=== PATIENT | female | born 1970 | race Hispanic/Latino ===

== ENCOUNTER 2025-06-02 08:40 | Observation (INO) | payer OTHER ==
[2025-05-30 10:38] VITALS: BP 140/90; PULSE 80; RESP 18; TEMP 97.8
[2025-05-30 10:56] LABS: INR 0.98 (0.85-1.15)
--- NOTE | 2025-05-30 11:14 | NUR ---
PREOP MARIE RT INSTRUCTED PT ON INCENTIVE SPIROMETRY
[~2025-06-02] VITALS: Ht 160 cm; Wt 98.0 kg
[2025-06-02] VITALS (25 sets, daily range): BP systolic 126–167; BP diastolic 74–94; PULSE 45–95; RESP 14–22; TEMP 97.2–98.5; O2SAT 94–98
[~2025-06-02 08:40] MED LIST: CELE-125 PO; FLUT1BLS IH; LOSA1TAB37 PO; TYLENOL ARTHRITIS PO
[2025-06-02] MEDS ORDERED: LIDOCAINE PF 100MG/5ML (2%) SYRINGE 5ML ONE (10:51)
[2025-06-02] MEDS ORDERED: SUCCINYLCHOLINE CHLORIDE 20 MG/ML 10 ML VIAL ONE (10:52)
[2025-06-02] MEDS ORDERED: GLYCOPYRROLATE 0.2 MG/ML 5 ML VIAL ONE (10:52)
[2025-06-02] MEDS ORDERED: NEOSTIGMINE METHYLSULFATE 1MG/ML IV ONE (10:52)
[2025-06-02] MEDS ORDERED: MIDAZOLAM HCL 1 MG/ML 2ML VIAL ONE (10:53)
[2025-06-02] MEDS: TRANEXAMIC ACID 1000MG/10ML ONE (11:10)
[2025-06-02] MEDS ORDERED: PoTASSium chl 10% ELIXIR 20MEQ 20 MEQ/15 ML UDCUP PO PRN (13:30)
[2025-06-02] MEDS ORDERED: CYCLOBENZAPRINE HCL 10 MG TABLET PO PRN (13:30)
[2025-06-02] MEDS ORDERED: FERROUS FUMARATE 324 MG TABLET PO PRN (13:30)
[2025-06-02] MEDS ORDERED: CALCIUM CARB 500MG PO PRN (13:30)
--- NOTE | 2025-06-02 13:51 | OP ---
Operative Note: DATE OF PROCEDURE: 06/02/25 PREOPERATIVE DIAGNOSIS: Left knee osteoarthritis. POSTOPERATIVE DIAGNOSIS: Left knee osteoarthritis. PROCEDURE PERFORMED: Left knee total knee arthroplasty. SURGEON: Hillary Mcdowell MD DRIVER RECRUITER: Nelda Bustillos and Annabelle Ozuna. ANESTHESIA: General with adductor canal block. ANESTHESIA: ORVILLE Fonseca ESTIMATED BLOOD LOSS: 50cc. COMPLICATIONS: None. DRAINS: None. SPECIMENS REMOVED: resected bone. Not sent to pathology. IMPLANTS: [employer] BCS size 4 Oxinium femur, size 3 tibial base plate, 32 mm patella, 9 mm polyethylene STATEMENT OF MEDICAL NECESSITY: The patient is a 55-year-old female who suffers from left knee osteoarthritis failing conservative management. After discussion of the risks, benefits, and alternatives with the patient, they voluntarily agreed to undergo the aforementioned procedure. DESCRIPTION OF PROCEDURE: Patient was properly identified in the preoperative holding area. Surgical site marking was verified and surgery consent reviewed. The patient was then taken to the operating room and placed in supine position on the OR table. After induction of general anesthesia, preoperative antibiotics were given, all bony prominences were well-padded, and a well padded tourniquet was applied but not inflated at this time. The left lower extremity was then prepped and draped in usual sterile fashion. Surgical time out was done verifying correct surgery, side, site, and location to be performed. We then began the procedure by exsanguinating the limb using an Esmarch and inflating the tourniquet to 350 mmHg. At this point, we made an anterior midline incision using a 10 blade, coming down sharply the level of the fascia. Skin flaps were elevated medially and laterally. We then obtained a clean 10 blade and performed a standard medial parapatellar arthrotomy. We excised the infrapatellar fat pad. We performed our soft tissue releases off of the tibia. We transected the ACL and removed the anterior portion of the medial & lateral meniscus. We then brought the knee into hyperflexion with the patella everted. We used our entry reamer to enter the femoral canal. We then placed our intramedullary cutting guide for our distal femoral cutting block. We then performed our distal femoral osteotomy ensuring appropriate rotation and removed the bony wafer. We then removed these pins and block and then used jig 2 to size the distal femur with the after mentioned size found. We then placed our 5-in-1 cutting block in 4 degrees of external rotation and took our 5 cuts ensuring to protect the patellar tendon and the collateral ligaments. We then removed the cutting block and our bony fragments using a curved osteotome. We then placed our PCL retractor subluxating the tibia anteriorly. Using an extra medullary tibial cutting guide, we hung the block for our proximal tibial cut taking 2 mm off the more diseased portion. Prior to pinning this block in place, we ensured appropriate varus/valgus alignment and posterior slope similar to the [place] slope of the patient's knee. We then performed our proximal tibial osteotomy and removed the bony wafer using Bovie electrocautery to release any remaining soft tissue attachments. We then used our tibial sizing paddle and checked once more for varus & valgus alignment and found this to be appropriate. At this point, we pinned our tibial paddle in place. We then removed the PCL retractor and subluxated the tibia posteriorly while we placed our femoral trial component. We then finished preparing the notch with the reamer and box chisel. The notch portion of the trial femoral component was then placed. A posterior stabilized polyethylene, size 9 trial was placed. The knee was then taken through range of motion and found to have stable full range of motion. We then placed a bump under the ankle and everted the patella to per form our freehand cut of the undersurface the patella. We then sized our patella and reamed to the lug holes for this. We placed our trial patellar component and begin to take the knee through range of motion. The patella had significant lateral tracking. Small lateral release was performed with the improvement in tracking. At this point we began removing our trial components and punched the tibial keel prior to removing our tibial trial component. Final components were opened and cement was mixed on the back table while we injected local cocktail in the posterior capsule. We then thoroughly irrigated out the bone and dried the bony surfaces. We cemented our tibial component in place ensuring to remove excess cement and placed our trial polyethylene. We then cemented our femoral component in place once again taking time to ensure excess cement was removed leg was brought into full extension to help squeeze the excess cement from around the femoral component. We then brought the knee back in a flexion to remove this portion of the cement at this point we placed the ankle in a bump thoroughly irrigated off the patellar component and cemented our patellar component in standard fashion again removing excess cement. While we waited for the cement to cure, we thoroughly irrigated out the wound with normal saline. Once our cement had cured, we took the knee through a range of motion and found full and stable range of motion. We then elected to use the size 9 polyethylene and removed our trial polyethylene. We impacted our final polyethylene component in place in standard fashion and took the knee through a range of motion check once more. This was satisfactory so we began to repair the arthrotomy using #5 Ethibond and #1 Vicryl in interrupted [id number] fashion. Subcutaneous tissue was repaired using 2-0 Vicryl. Running subcuticular 3-0 Monocryl stitch with Dermabond placed over this for the skin. We then applied a foam barrier dressing and a pressure dressing consisting of 4 x 4's fluffs and an Ryder wrap. The tourniquet was then deflated. Patient was awakened from anesthesia, and they were taken to the recovery room in stable condition. HILLARY MCDOWELL MD Jun 02, 2025 13:51
[2025-06-02] MEDS: MIDAZOLAM HCL 1 MG/ML 2ML VIAL ONE (14:42)
[2025-06-02] MEDS: CYCLOBENZAPRINE HCL 10 MG TABLET ONE (15:00)
--- NOTE | 2025-06-02 15:30 | NUR ---
PT oumar completed in PACU with Vanessa WALKER at bedside. Pt requesting to use RR. Pt is 8/10 pain with movement. Pt able to sit EOB and stand with walker but unable to bear weight to LLE due to pain.Pt became dizzy. Pt sat on bed salas at EOB to void. Nurse and PT assisted back to bed. 1640: No room assignment at this time, unable to provide SCDs, walker, or write on whiteboard for patient. Pt did not walk on this date and should transfer with nurse to chair/BSC only.
[2025-06-02] MEDS: 0.9%NACL 1000ML 1,000 ML IV SCH (18:40)
[2025-06-02] MEDS: LACTATED RINGERS 1000ML 1,000 ML IV ONE (19:37)
[2025-06-02] MEDS: SUGAMMADEX SODIUM 200 MG/2 ML VIAL IV ONE (19:38)
[2025-06-02] MEDS: FAMOTIDINE 20MG VIAL IV ONE (19:38)
--- NOTE | 2025-06-02 20:48 | HMCIMG ---
EXAM: CR left knee, 2 View. CLINICAL HISTORY: S/P LEFT TKA SURGERY COMPARISON: None provided. FINDINGS: Left total knee arthroplasty is in near anatomic alignment with no periprosthetic fracture appreciated. Soft tissue edema and subcutaneous emphysema noted about the left knee. Knee joint effusion. IMPRESSION: 1. Left total knee arthroplasty in near anatomic alignment without a periprosthetic fracture. 2. Soft tissue edema, subcutaneous emphysema, and joint effusion about the left knee. /[place]
[2025-06-02] MEDS: HYDROcodone/APAP 5/325 1 TAB TABLET PO PRN (22:24)
[2025-06-03] VITALS: BP 104/70; PULSE 77; RESP 19; TEMP 99
[2025-06-03 04:00] VITALS: BP 105/53; PULSE 76; RESP 19; TEMP 98.5
[2025-06-03 04:52] LABS: NUCLEATED RED BLOOD CELLS 0.0 % (0.0-0.19); PLATELET COUNT (AUTO) 247.0 K/uL (130-400); RED BLOOD CELL COUNT(AUTO) 3.98 MIL/uL (4.00-5.50); RED CELL DISTRIBUTION WIDTH 13.2 % (11.0-15.5); WHITE BLOOD COUNT (AUTO) 15.2 K/uL (4.8-10.8)
[2025-06-03 05:12] LABS: CREATININE 0.7 mg/dL (0.5-1.0); GLOMERULAR FILTR. RATE CALC 101.0 mL/min (>90); GLUCOSE,RANDOM 129.0 mg/dL (70-105); SODIUM SERUM 138.0 mmol/L (136-145); UREA NITROGEN, BLOOD 15.0 mg/dL (7-18)
[2025-06-03] MEDS: PoTASSium chloRIDE 20MEQ ER 20 MEQ ERTAB PO PRN (06:33)
[2025-06-03 08:00] VITALS: BP 108/69; PULSE 78; RESP 18; TEMP 97.6; O2SAT 96
--- NOTE | 2025-06-03 08:22 | PN ---
Ortho postop day one. This morning patient is awake alert and oriented. She is seated out of the chair enjoying her breakfast. Has been present in the room. Reporting adequate pain control. Operative findings discussed with the patient. Vital signs reviewed. Had low-grade fever about 99 early this morning today on assessment was at 98.4 I tried to reinforce incentive spirometry but there was no incentive spirometry gadget available and this was addressed to nursing. Laboratory results reviewed. Ryder bandage his already been removed. The anterior dressing is intact. She has alternating extension and flexion with a footstool. Gastrocnemius soft nontender. Ice present to operative site. Pending physical therapy this morning. Anticipated discharge goal is home health/PT. Assessment: Status post left total knee arthroplasty. Plan: Continue with Dr. Mcdowell's TKA protocol and discharge planning. Vitals/Labs Vital Signs Date Time Temp Pulse Resp B/P (MAP) Pulse Ox O2 Delivery O2 Flow Rate FiO2 06/03/25 04:00 98.4 76 19 105/53 19 Nasal Cannula 06/03/25 00:00 2.0 06/02/25 20:00 28 Laboratory Tests 06/03/25 04:33 Medications Current Medications Cefazolin Sodium 2 gm STK-MED ONCE .ROUTE Last administered on 06/02/25at 11:15; Start 06/02/25 at 08:45; Stop 06/02/25 at 08:45; Status DC Lactated Ringer's 1,000 ml @ As Directed STK-MED ONCE IV; Start 06/02/25 at 08:45; Stop 06/02/25 at 08:45; Status DC Acetaminophen 100 ml @ As Directed STK-MED ONCE .ROUTE; Start 06/02/25 at 10:49; Stop 06/02/25 at 10:49; Status DC Famotidine 20 mg STK-MED ONCE IV; Start 06/02/25 at 10:49; Stop 06/02/25 at 10:50; Status DC Lidocaine HCl 100 mg STK-MED ONCE .ROUTE; Start 06/02/25 at 10:51; Stop 06/02/25 at 10:52; Status DC Ondansetron HCl 4 mg STK-MED ONCE .ROUTE; Start 06/02/25 at 10:51; Stop 06/02/25 at 10:52; Status DC Succinylcholine Chloride 200 mg STK-MED ONCE .ROUTE; Start 06/02/25 at 10:52; Stop 06/02/25 at 10:52; Status DC Propofol 200 mg STK-MED ONCE IV; Start 06/02/25 at 10:52; Stop 06/02/25 at 10:52; Status DC Dexamethasone Sodium Phosphate 10 mg STK-MED ONCE .ROUTE; Start 06/02/25 at 10:52; Stop 06/02/25 at 10:52; Status DC Glycopyrrolate 1 mg STK-MED ONCE .ROUTE; Start 06/02/25 at 10:52; Stop 06/02/25 at 10:52; Status DC Neostigmine Methylsulfate 10 mg STK-MED ONCE IV; Start 06/02/25 at 10:52; Stop 06/02/25 at 10:52; Status DC Rocuronium [place] 50 mg STK-MED ONCE .ROUTE; Start 06/02/25 at 10:52; Stop 06/02/25 at 10:52; Status DC Fentanyl Citrate 100 mcg STK-MED ONCE .ROUTE; Start 06/02/25 at 10:53; Stop 06/02/25 at 10:53; Status DC Midazolam HCl 2 mg STK-MED ONCE .ROUTE; Start 06/02/25 at 10:53; Stop 06/02/25 at 10:53; Status DC Tranexamic Acid 1,000 mg STK-MED ONCE .ROUTE Last administered on 06/02/25at 11:10; Start 06/02/25 at 10:53; Stop 06/02/25 at 10:53; Status DC Ropivacaine 150 mg STK-MED ONCE .ROUTE; Start 06/02/25 at 10:54; Stop 06/02/25 at 10:54; Status DC Ketorolac Tromethamine 30 mg STK-MED ONCE .ROUTE Last administered on 06/02/25at 11:49; Start 06/02/25 at 11:02; Stop 06/02/25 at 11:03; Status DC Ropivacaine 150 mg STK-MED ONCE .ROUTE Last administered on 06/02/25at 11:49; Start 06/02/25 at 11:03; Stop 06/02/25 at 11:03; Status DC Fentanyl Citrate 100 mcg STK-MED ONCE .ROUTE; Start 06/02/25 at 11:20; Stop 06/02/25 at 11:20; Status DC Phenylephrine HCl 10 mg STK-MED ONCE IV; Start 06/02/25 at 12:37; Stop 06/02/25 at 12:37; Status DC Sodium Chloride 1,000 ml @ 100 mls/hr Q10H IV Last administered on 06/02/25at 18:40; Start 06/02/25 at 13:30; Stop 06/03/25 at 13:29 Polyethylene Glycol 17 gm DAILY PO; Start 06/03/25 at 09:00; Stop 07/03/25 at 08:59 Bisacodyl 10 mg DAILY PRN RC; Start 06/05/25 at 13:30; Stop 07/05/25 at 13:29 Ketorolac Tromethamine 15 mg Q6H PRN IV; Start 06/03/25 at 13:30; Stop 06/08/25 at 13:29 Ferrous Fumarate 324 mg DAILY PRN PO; Start 06/02/25 at 13:30; Stop 07/02/25 at 13:29 Ondansetron HCl 4 mg Q6H PRN IVP; Start 06/02/25 at 13:30; Stop 07/02/25 at 13:29 Calcium Carbonate 500 mg Q12H PRN PO; Start 06/02/25 at 13:30; Stop 07/02/25 at 13:29 Diphenhydramine HCl 25 mg Q6H PRN IVP; Start 06/02/25 at 13:30; Stop 07/02/25 at 13:29 Cefazolin Sodium 2 gm Q8H IVP Last administered on 06/03/25at 02:08; Start 06/02/25 at 18:30; Stop 06/03/25 at 02:32; Status DC Cyclobenzaprine HCl 5 mg Q8H PRN PO; Start 06/02/25 at 13:30; Stop 07/02/25 at 13:29 Gabapentin 100 mg TID PO Last administered on 06/02/25at 19:51; Start 06/02/25 at 14:00; Stop 07/02/25 at 13:59 Aspirin 325 mg DAILY PO; Start 06/03/25 at 09:00; Stop 07/03/25 at 08:59 Ketorolac Tromethamine 15 mg Q8H IV Last administered on 06/03/25at 05:31; Start 06/02/25 at 13:30; Stop 06/03/25 at 05:31; Status DC Docusate Sodium 100 mg BID PO Last administered on 06/02/25at 19:51; Start 06/02/25 at 21:00; Stop 07/02/25 at 20:59 Potassium Chloride 100 ml @ 100 mls/hr AD PRN IV; Start 06/02/25 at 13:30; Stop 07/02/25 at 13:29 Potassium Chloride 20 meq AD PRN PO; Start 06/02/25 at 13:30; Stop 07/02/25 at 13:29 Potassium Chloride 20 meq AD PRN PO Last administered on 06/03/25at 06:33; Start 06/02/25 at 13:30; Stop 07/02/25 at 13:29 Tramadol HCl 50 mg Q6H PRN PO; Start 06/02/25 at 13:30; Stop 06/07/25 at 13:29 Acetaminophen/ Hydrocodone Bitart Q4H PRN PO Last administered on 06/03/25at 07:21; Start 06/02/25 at 13:30; Stop 06/07/25 at 13:29 Fluticasone/ Vilanterol 1 DAILY PRN IH; Start 06/02/25 at 13:30; Stop 07/02/25 at 13:29 HCTZ/Losartan Potassium 1 tab AM PO; Start 06/03/25 at 09:00; Stop 07/03/25 at 08:59 Fentanyl Citrate 100 mcg STK-MED ONCE .ROUTE Last administered on 06/02/25at 14:39; Start 06/02/25 at 13:45; Stop 06/02/25 at 13:45; Status DC Midazolam HCl 2 mg STK-MED ONCE .ROUTE Last administered on 06/02/25at 14:42; Start 06/02/25 at 13:55; Stop 06/02/25 at 13:55; Status DC Fentanyl Citrate 100 mcg STK-MED ONCE .ROUTE Last administered on 06/02/25at 14:41; Start 06/02/25 at 14:03; Stop 06/02/25 at 14:03; Status DC Ketorolac Tromethamine 15 mg STK-MED ONCE .ROUTE Last administered on 06/02/25at 14:59; Start 06/02/25 at 14:49; Stop 06/02/25 at 14:49; Status DC Cyclobenzaprine HCl 10 mg STK-MED ONCE .ROUTE Last administered on 06/02/25at 15:00; Start 06/02/25 at 14:50; Stop 06/02/25 at 14:50; Status DC Gabapentin 100 mg STK-MED ONCE .ROUTE Last administered on 06/02/25at 14:58; Start 06/02/25 at 14:50; Stop 06/02/25 at 14:50; Status DC ZACK GUIDRY NP Jun 03, 2025 08:22
--- NOTE | 2025-06-03 09:00 | NUR ---
Received a call from nurse at this time that patient needed Incentive Spirometry device. Addendum: 06/03/25 at 1211 by RT CHIP RT Amended: Links added.
[2025-06-03] MEDS: ASPIRIN 325MG EC TAB PO SCH (09:27)
[2025-06-03] MEDS: LOSARTAN/HYDROCHLOROTHIAZIDE 50-12.5MG TABLET PO SCH (09:27)
[2025-06-03 12:00] VITALS: BP 103/68; PULSE 74; RESP 18; TEMP 98.5
--- NOTE | 2025-06-03 13:04 | NUR ---
[facility] CM MET WITH PT AND THIS MORNING, INITIAL ASSESSMENT DONE. PATIENT IS INDEPENDENT PRIOR TO SURGERY, LIVES AT HOME WITH AND MOTHER. PATIENT VERBALIZED SHE HAS A SHOWER CHAIR, NEBULIZER MACHINE. DENIES ANY OTHER EQUIPMENT/SERVICES. FEELS SAFE TO GO BACK HOME, STILL DRIVE, SPOUSE ABLE TO ASSIST WITH TRANSPORTATION AND NEEDS NECESSARY. DISCUSSED HOME W/HH AND WILL NEED DME STANDARD WALKER. PT AGREEABLE, CONSENT SIGNED YAMIL FOR ANY IN NETWORK HH AND DME. [facility] HOME W/HH & DME ONCE APPROVED. CM TO CONTINUE TO FOLLOW UP. Addendum: 06/03/25 at 1307 by DARLENE BARAHONA LVN Amended: Links added.
--- NOTE | 2025-06-03 13:20 | NUR ---
ORTHO COORDINATOR: TEACHING REGARDING DVT AND PNEUMONIA PREVENTION, PAIN EXPECTATIONS AND PAIN MANAGEMENT. PATIENT IN BED, FAMILY AT BEDSIDE. PATIENT REPORTS [place]VI[place] SPEAKING ONLY, HOSPITAL ELDERLY SITTER UTILIZED. DRESSING CLEAN, DRY AND INTACT. B SCD SLEEVES IN PLACE AND FUNCTIONING. INCENTIVE SPIROMETER ON BEDSIDE TABLE. PATIENT RETURN DEMONSTRATED USE OF INCENTIVE SPIROMETER, ATTEMPTING TO EXHALE INTO DEVICE INSTEAD OF INHALING. AFTER REINFORCING TEACHING, PATIENT RETURN DEMONSTRATED PROPER USE. PATIENT VERBALIZED INCORRECT FREQUENCY OF USE, CORRECTED FREQUENCY. PATIENT ABLE TO VERBALIZE PROPER FREQUENCY. PATIENT RETURN DEMONSTRATED PROPER FOOT FLEXION/EXTENSION EXERCISES, RATIONALE PROVIDED. PAIN CONTROLLED. PAIN MANAGEMENT STRATEGY REVIEWED. PATIENT VERBALIZED UNDERSTANDING. PATIENT INTENDS TO DISCHARGE HOME WITH HOME HEALTH PHYSICAL THERAPY. REVIEWED PROCESS, QUESTIONS ANSWERED. EXPECTATION SET FOR PATIENT TO SHOWER TODAY, RATIONALE PROVIDED. PATIENT ENCOURAGED TO CONTINUE USE OF INCENTIVE SPIROMETER ONCE DISCHARGED, TO CONTINUE FOOT FLEXION/EXTENSION EXERCISES, TO CONTINUE PREMEDICATING PRIOR TO PHYSICAL THERAPY AND PERIODS OF HIGH ACTIVITY ACTIVITY, CONTINUE HYDRATING AND AMBULATING. PATIENT VERBALIZED UNDERSTANDING TO ALL INSTRUCTIONS. NO ADDITIONAL QUESTIONS OR CONCERNS. 1330 REPORT TO PRIMARY NURSE THAT EXPECTATION FOR PATIENT TO SHOWER SET WITH PATIENT. PRIMARY NURSE ACKNOWLEDGED COMMUNICATION.
[2025-06-03 16:00] VITALS: BP 140/74; PULSE 92; RESP 18; TEMP 98.4
[2025-06-03 20:00] VITALS: BP 125/77; PULSE 89; RESP 18; TEMP 98; O2SAT 97
[2025-06-04] VITALS: BP 122/72; PULSE 91; RESP 18; TEMP 98.5
[2025-06-04 04:00] VITALS: BP 153/69; PULSE 85; RESP 18; TEMP 98.2
[2025-06-04 08:00] VITALS: BP 130/84; PULSE 92; RESP 20; TEMP 98.1; O2SAT 96
[2025-06-04 12:00] VITALS: BP 126/85; PULSE 93; RESP 16; TEMP 98.7
[2025-06-04] MEDS ORDERED: DOCU-116 PO (12:01)
[2025-06-04] MEDS ORDERED: GABA100C PO (12:01)
[2025-06-04] MEDS ORDERED: HYDR-4060 PO (12:01)
[2025-06-04] MEDS ORDERED: CYCL-309 PO (12:01)
[2025-06-04] MEDS ORDERED: ASPI-891 PO (12:01)
[2025-06-04 16:00] VITALS: BP 115/79; PULSE 89; RESP 18; TEMP 98.3
--- NOTE | 2025-06-04 16:29 | NUR ---
REPORT CALLED IN TO HARJEET JOHNSTON AT [facility]. ALL QUESTIONS AND CONCERNS ANSWERED.
--- NOTE | 2025-06-04 16:30 | NUR ---
ORTHO COORDINATOR: PATIENT UP TO SHOWER. DISCHARGE ORDERS PLACED.
--- NOTE | 2025-06-04 17:15 | NUR ---
Pt. given D/C instruction--all questions answered. Peripheral IV removed, manual pressure applied and hemostasis achieved. No acute distress noted. Pt. d/c'd to private vehicle via w/c.
== END 2025-06-04 17:15 | disposition home health service (06) ==
LOC: DAH 08:40 → DAHIP 08:41 → DAH 08:41 → 4BH 18:15
PROVIDERS: ADMIT Student in an Organized Health Care Education/Training Program; ATTEND Student in an Organized Health Care Education/Training Program
DX: M17.12 Unilateral primary osteoarthritis, left knee (principal); M25.562 Pain in left knee; I10 Essential (primary) hypertension; K21.9 Gastro-esophageal reflux disease without esophagitis; R79.1 Abnormal coagulation profile; Z79.899 Other long term (current) drug therapy; Z98.890 Other specified postprocedural states; Z86.73 Personal history of transient ischemic attack (TIA), and cerebral infarction without residual deficits
CPT/HCPCS: 85610; 85730; 84134; 86140; 36415 ×2; 87641; 27447; 96374; 96375; 73560; 97161; 97530 ×10; 96376; 80048; 85027; 97116 ×4; G0378 ×52; A4663; J7120; J1308; J3010 ×4; J3490 ×3; J1100; J0330; J2003; J2250 ×2; J2704; J2405; J1885 ×5; J2710; J2795 ×2; J2371; J0690 ×3; C1713 ×2; C1776 ×2; A4649 ×2; A6255; A5120; A4215; A4223 ×2; A4213; A4222; A4221; A4216; 64447

== ENCOUNTER 2025-06-24 09:34 | Emergency (ER) | payer OTHER ==
[~2025-06-24] VITALS: Ht 160 cm; Wt 97.1 kg
[~2025-06-24 09:34] MED LIST changes: +ASPI-891 PO; +CYCL-309 PO; +DOCU-116 PO; +GABA100C PO; +HYDR-4060 PO; -TYLENOL ARTHRITIS PO
--- NOTE | 2025-06-24 09:52 | ERN ---
General Chief Complaint: LOWER EXTREMITY EDEMA Stated Complaint: LEFT LOWER EXTREMITY Time Seen by MD: 09:38 Source: patient History of Present Illness Initial Comments In his is a 55-year-old female coming in complaining of lower left extremity swelling. Per patient she was evaluated by business taxes specialist and concerns about a DVT arose. For business taxes specialist she is to have an ultrasound performed. Patient had surgery on the left knee by Dr. Mcdowell on 06/02/2005. Allergies: Coded Allergies: No Known Drug Allergies (Unverified Allergy, Unknown, 05/30/25) Home Meds Active Scripts Docusate Sodium (Colace) 100 Mg Capsule, 1 CAP PO BID for 30 Days, #60 CAP 0 Refills Prov:GIFTY MCDOWELL MD 06/04/25 Hydrocodone/Acetaminophen (Hydrocodon-Acetaminophen 5-325) 5 Mg-325 Mg Tablet, 1-2 TAB PO Q4H PRN for MODERATE/SEVERE PAIN LEVEL, #56 TAB 0 Refills Prov:GIFTY MCDOWELL MD 06/04/25 Gabapentin (Neurontin) 100 Mg Capsule, 100 MG PO TID, #90 CAP 0 Refills Prov:GIFTY MCDOWELL MD 06/04/25 Cyclobenzaprine HCl (Cyclobenzaprine HCl) 10 Mg Tablet, 5 MG PO Q8H PRN for MUSCLE SPASMS, #45 TAB 0 Refills Prov:GIFTY MCDOWELL MD 06/04/25 Aspirin (Aspirin EC) 325 Mg Tablet.dr, 325 MG PO BID, #60 TAB 0 Refills Prov:GIFTY MCDOWELL MD 06/04/25 Reported Medications Fluticasone/Vilanterol (Breo Ellipta 200-25 Mcg INH) 200 Mcg-25 Mcg/Dose Blst.w.dev, 1 EACH IH DAILY PRN for SHORTNESS OF BREATH 05/30/25 Celecoxib (Celecoxib) 200 Mg Capsule, 200 MG PO BID PRN for PAIN, CAP 05/30/25 Losartan/Hydrochlorothiazide (Losartan-Hctz 50-12.5 mg Tab) 50 Mg-12.5 Mg Tablet, 1 EACH PO AM, TAB 05/30/25 Past Medical History Past Medical History: Asthma, Hypertension Past Surgical History: Hysterectomy, Other Surgical History Other: left knee total replacement ROS Dictation CONSTITUTIONAL: No chills, no fever, no weakness, no diaphoresis, no malaise. HEAD/FACE: No signs of trauma. EENT: No eye pain, no blurred vision, no tearing, no double vision, no ear pain, no ear discharge, no nose pain, no nasal congestion, no throat pain, no throat swelling, no mouth pain. RESPIRATORY: No cough, no orthopnea, no SOB, no stridor, no wheezing. CARDIOVASCULAR: No chest pain, no edema, no palpitations, no syncope. GASTROINTESTINAL/ABDOMINAL: No abdominal pain, no constipation, no diarrhea, no nausea, no vomiting. GENITOURINARY: No abnormal discharge, no dysuria, no frequent urination, no hematuria. No complaints of pain in the genitals. MUSCULOSKELETAL: No back pain, no gout, no joint pain, no joint swelling, no muscle pain, no muscle stiffness, no neck pain. INTEGUMENTARY: No change in color, no change in hair/nails, no dryness, no lesion, no lumps, no rash. NEUROLOGICAL/PSYCH: No anxiety, not depressed, no emotional problem, no headach e, no numbness, no pre-existing deficit, no history of seizures, no tremors, no weakness. HEMATOLOGIC/LYMPHATIC: Not anemic, no history of blood clots, no apparent bleeding, no bruising, glands not swollen. All Systems Negative, Except as Noted. Physical Exam Physical Exam Dictation VITAL SIGNS: Reviewed. GENERAL APPEARANCE: Alert, oriented x3, no acute distress, obese. HEAD AND FACE: Non-traumatic. EYES: PERRL, pink conjunctivas, eyelid no trauma, anterior chamber clear. EARS: Pinnas intact and no signs of trauma or erythema. Ear canals clear and no discharge. TMs no erythema. NOSE: No discharge, no bleeding. OROPHARYNX: Mouth normal, teeth no caries, tongue pink. Pharynx clear, no erythema. Tonsils no exudates, no abscesses noted. Mucous membrane moist. NECK: Supple, non-tender, no thyromegaly, no masses, no JVD, no bruits. BREAST: Deferred. CHEST: No tenderness, no crepitus, no paradoxical movement, no retractions. LUNGS: Clear, well-ventilated, symmetric, no rales, no wheezing, no rhonchi, no stridor, good breath sounds bilaterally. HEART: Regular rate, regular rhythm, no murmur, no gallops. VASCULAR: No peripheral edema. ABDOMEN: Soft, positive bowel sounds, nondistended, no guarding, nontender, no rebound, no masses no hepatomegaly, no splenomegaly, no Hill's sign, no hernias. RECTAL: Deferred. GENITAL: Deferred. NEUROLOGICAL: Normal speech, gross motor function intact, gross sensory function intact. MUSCULOSKELETAL: Neck nontender, full range of motion, back nontender, full range of motion. EXTREMITIES: Nontender, full range of motion. SKIN: Color pink, dry, no turgor, no rash, no lacerations, no abrasions, no contusions. LYMPHATICS: Deferred. Results Laboratory and Microbiology Labs Reviewed?: Yes EKG/XRAY/US/CT/MRI Ultrasound Comment Left lower extremity ultrasound venous- no DVT MDM MDM: Differential diagnosis: Lower extremity edema, venous stasis, Rationale: Tests considered and ordered secondary to shared decision making include: Previous outside records reviewed: Old ER visits. Risk of complication and/or morbidity or mortality of patient management: None Medications-Per medication reconciliation Need for hospitalization: Patient does not meet criteria for hospitalization. Need for emergency major/minor surgery: No Patient is a 55-year-old female coming in to be evaluated for lower extremity congestion and swelling. Ultrasound did not disclose clots. Per Dr. Mcdowell office patient was to be evaluated for lower extremity DVT. Compression stocking we will be applied I did advised her appropriate follow up with the business taxes specialist for ongoing management and evaluation. ED Course Orders Procedure Category Date Status Time Us Venous Doppler US 06/24/25 Taken Unilateral 09:45 Vital Signs Date Time Temp Pulse Resp B/P (MAP) Pulse Ox O2 Delivery O2 Flow Rate FiO2 06/24/25 10:39 98.1 77 20 142/86 95 Room Air* 0 21 06/24/25 09:43 97.3 92 18 118/87 96 Room Air* 0 21 06/24/25 09:40 97.3 92 18 118/87 96 Room Air 0 DX & DISP Disposition: Discharge Departure Impression: Primary Impression: Venous stasis Additional Impression: Lower extremity edema Condition: Stable Additional Instructions: FOLLOW-UP WITH PRIMARY CARE PROVIDER IN 1 TO 2 DAYS. TAKE MEDICATIONS DIRECTED HERE IN THE EMERGENCY ROOM. OKAY TO CONTINUE HOME MEDICATIONS UNLESS OTHERWISE DISCUSSED DURING YOUR VISIT IN THE EMERGENCY ROOM TODAY. RETURN TO YOUR NEAREST EMERGENCY ROOM IF SYMPTOMS WORSEN OR IF THERE IS NO IMPROVEMENT. CALL 911 IF YOU NEED IMMEDIATE ASSISTANCE. TAKE TYLENOL [id number] NEEDED AND IF NO CONTRAINDICATIONS ARE PRESENT. INCREASE ORAL HYDRATION. A WOUND CULTURE OR URINE CULTURE WAS ORDERED HERE IN THE EMERGENCY ROOM DEPARTMENT PLEASE FOLLOW-UP WITH PRIMARY CARE PROVIDER AND ADVISE THEM TO GET REPORTS FROM OUR FACILITY. IF YOU HAD ANY DYLAN WRAP/SPLINTS THAT WERE APPLIED HERE, PLEASE DO NOT REMOVE THEM UNTIL YOU SEE YOUR PRIMARY CARE OR SPECIALTY. Referrals: Referrals: MAGDA BOWLES M.D. (PCP) GIFTY MCDOWELL MD Time of Disposition: 10:48 SHIELA GUARDADO MD Jun 24, 2025 09:52
--- NOTE | 2025-06-24 09:55 | NUR ---
PT JUST NOW BROUGHT BACK TO ED BED 12 VIA W/C. HER WALKER WAS LEFT W/HER UNCLE WHO IS AWAITING IN THE ED WAITING ROOM. HOB ELEVATED, SR UP X 1 AND BED LOW AND LOCKED
[2025-06-24 10:39] VITALS: BP 142/86; PULSE 77; RESP 20; TEMP 98.1; O2SAT 95
--- NOTE | 2025-06-24 11:01 | HMCIMG ---
EXAM: US for Deep Venous Thrombosis, left Lower Extremity. CLINICAL HISTORY: Leg swelling TECHNIQUE: Real-time ultrasound scan of the veins of the left lower extremity with color Doppler flow, spectral waveform analysis, and compression. COMPARISON: None provided. FINDINGS: DEEP VEINS: The common femoral, superficial femoral, and popliteal veins are echolucent and compressible. There is normal color Doppler flow throughout. The visualized calf veins appear patent. SOFT TISSUES: No popliteal fossa cyst or other abnormalities. IMPRESSION: No deep venous thrombosis is evident on left lower extremity examination. /[place]
== END 2025-06-24 11:05 | disposition home or self-care (01) ==
LOC: EDH 09:34
DX: I87.8 Other specified disorders of veins (principal); R60.0 Localized edema; I10 Essential (primary) hypertension; J45.909 Unspecified asthma, uncomplicated; Z79.51 Long term (current) use of inhaled steroids; Z79.82 Long term (current) use of aspirin; Z79.899 Other long term (current) drug therapy; Z90.710 Acquired absence of both cervix and uterus; Z96.652 Presence of left artificial knee joint
CPT/HCPCS: 93971; 99284